=== PATIENT | female | born 1990 | race Caucasian/White ===

== ENCOUNTER 2016-08-29 14:16 | Emergency (ER) | payer OTHER ==
[~2016-08-29 14:16] MED LIST: IBUP80TA PO; PERCOCET PO; VITAPRTA PO
--- NOTE | 2016-08-29 15:55 | EDDOCDS ---
Nurse's Notes [facility] Name: Terri Joy Age: 25 yrs Sex: Female : 1990 Arrival Date: 08/29/2016 Time: 14:16 Bed I10 23 Private MD: NO PRIMARY PHYSICIAN, . Diagnosis: Acute upper respiratory infection, unspecified-viral Presentation: 08/29 14:24 Presenting complaint: Patient states: I have a very bad sore throat, worried it may be [facility] strep, nasal congestion with green snot, heavy head hurts bad, on and off for past month. Adult Sepsis Screening: The patient does not have new or worsening altered mentation. Patient's respiratory rate is less than 22. Systolic blood pressure is greater than 100. Patient has a qSOFA score of 0- Negative Sepsis Screen. Suicide/Homicide risk assessment- the patient denies having any suicidal and/or homicidal ideations and does not present with any other emotional, behavioral or mental health complaints. Status: Patient is not a agency service representative or dependent. Transition of care: patient was not received from another setting of care. 14:24 Acuity: YUAN Level 4 [facility] 14:24 Method Of Arrival: Walkin/Carried/Asstd [facility] Triage Assessment: 14:26 General: Appears in no apparent distress, comfortable, Behavior is appropriate for age, [facility] cooperative. Pain: Location: head, throat, and nose Pain currently is 10 out of 10 on a pain scale. HIV screening NA for this visit. Neurological: Level of Consciousness is awake, alert, Oriented to person, place, time. Respiratory: Airway is patent Respiratory effort is even, unlabored, Respiratory pattern is regular, symmetrical, Reports cough that is. Derm: Skin is pink, warm & dry. 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 control pill daily - PMHx: Asthma; - PSHx: Cesearean Section; - Social history: Smoking status: Patient states was never smoker of tobacco. No barriers to communication noted. - Family history: Not pertinent. - : The pt / caregiver states he / she is not on anticoagulants. Home medication list is obtained from the patient. - Exposure Risk Screening:: None identified. Screenin:17 Screening information is obtained from the patient. Fall risk: No risks identified. mcp Assistance ADL's: requires no assistance with activities of daily living. Abuse/DV Screen: The patient / caregiver reports he/she is: not in a situation that causes fear, pain or injury. Nutritional screening: No deficits noted. Advance Directives: Currently, there is no health care proxy. There is no active DNR order. There is no Power of Employment Clerk. home support is inadequate. Assessment: 15:16 General: Appears in no apparent distress, Behavior is cooperative. Pain: Location: head mcp and throat Pain currently is 7 out of 10 on a pain scale. Neurological: No deficits noted. EENT: Throat is reddened bilaterally Reports nasal congestion nasal discharge that is green. Respiratory: Airway is patent Respiratory effort is even, unlabored. Derm: Skin is pink, warm & dry. Vital Signs: 14:17 BP 126 / 74; Pulse 68; Resp 18; Temp 98.7(O); Pulse Ox 98% ; Weight 81.65 kg; Height 5 elp ft. 8 in. (172.72 cm); 15:52 BP 131 / 77; Pulse 85; Resp 18; Temp 97.6(T); Pulse Ox 94% on R/A; Pain 0/10; mcp 14:17 Body Mass Index 27.37 (81.65 kg, 172.72 cm) [facility] Vitals: 14:17 Log In Time: August 29, 2016 at 14:14. [facility] ED Course: 14:17 Patient visited by Angie Kaufman PCA. elp 14:17 NO PRIMARY PHYSICIAN, . is Private Physician. elp 14:17 Patient moved to Waiting elp 14:18 Patient visited by Angie Kaufman PCA. elp 14:23 Patient visited by Angie Kaufman PCA. elp 14:23 Patient moved to Pre RCE elp 14:25 Triage Initiated cj 14:37 [facility] le 14:37 Patient moved to I10 / 23 hs1 14:41 Patient visited by Ce Kuhn FNP. le 14:41 Patient visited by Ce Kuhn FNP. le 15:17 The patient / caregiver is instructed regarding the plan of care and ED course. Patient mcp has correct armband on for positive identification. Bed in low position. Call light in reach. Adult w/ patient. 15:18 Patient visited by Livier Tapia RN. [facility] 15:18 No IV's were initiated during this patient's visit. No procedures done that require mcp assistance. 15:18 GATS (NEGATIVE STREP SCREEN) Sent. [facility] 15:23 [facility] Payment Agreement was scanned into [employer] and attached to record. 15:38 [facility] is Referral Physician. le Order Results: There are currently no results for this order. Outcome: 15:38 Discharge ordered by Provider. le 15:53 Discharge Assessment: patient administered narcotics - no. The following High Risk [facility] Discharge criteria are identified: None. Discharged to home ambulatory, with family. Condition: stable. Discharge instructions given to patient, Instructed on discharge instructions, follow up and referral plans. medication usage, Demonstrated understanding of instructions, medications, Pt was receptive of discharge instructions/ teaching. Prescriptions given X 1, Work note provided to patient. No special radiology studies were completed. Property sent home with patient. 15:54 Patient left the ED. [facility] Signatures: Livier Tapia, RN RN Jasmyn Rizvi, Reg Reg lg Ce Kuhn, TRANSPORTATION DISPATCHER TRANSPORTATION DISPATCHER Jenniffer Veliz RN RN hs1 Harper BondsRN RN [facility] Angie Kaufman, GLENN TOOL BUILDER elp Corrections: (The following items were deleted from the chart) 14:23 14:17 81.65 kg; Height 5 ft. 8 in.; BMI: 27.3; elp elp MTDD
--- NOTE | 2016-08-29 15:55 | EDDOCDS ---
Physician Documentation [facility] Name: Terri Joy Age: 25 yrs Sex: Female : 1990 Arrival Date: 08/29/2016 Time: 14:16 Bed I10 / 23 Private MD: NO PRIMARY PHYSICIAN, . Disposition: 08/29 15:40 Critical Care: Critical care not applicable. le Disposition: 08/29/16 15:38 Discharged to Home/Self Care. Impression: Acute upper respiratory infection, unspecified - viral. - Condition is Stable. - Discharge Instructions: Upper Respiratory Infection, Adult, Viral Infections. - Prescriptions for Fluticasone 50 mcg/actuation Nasal [place], Suspension - inhale 2 spray by INTRANASAL route once daily; 1 bottle. - Medication Reconciliation, Work Release Form - 2 day, Local Pharmacy Hours form. - Follow up: [facility]; When: Call to arrange an appointment; Reason: To establish care. - Problem is an ongoing problem. - Symptoms are unchanged. - Notes: Keep hydrated Continue to use OTC cold meds for symptom control Return to the ED for worsening symptoms Historical: - Allergies: no known allergies; - Home Meds: 1. control pill daily - PMHx: Asthma; - PSHx: Cesearean Section; - Social history: Smoking status: Patient states was never smoker of tobacco. No barriers to communication noted. - Family history: Not pertinent. - : The pt / caregiver states he / she is not on anticoagulants. Home medication list is obtained from the patient. - Exposure Risk Screening:: None identified. 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 8 in. (172.72 cm); 15:52 BP 131 / 77; Pulse 85; Resp 18; Temp 97.6(T); Pulse Ox 94% on R/A; Pain 0/10; mcp 14:17 Body Mass Index 27.37 (81.65 kg, 172.72 cm) elp MDM: 14:54 Strep Screen, Nursing ordered. le 15:02 Financial registration complete. lg 15:17 GATS (NEGATIVE STREP SCREEN) Ordered. EDMS 15:23 [facility] Payment Agreement was scanned into MED[employer] and attached to record. lg Signatures: Dispatcher [employer] EDMS Livier Tapia, RN RN Jasmyn Rizvi, Reg Reg lg Ce Kuhn, STREET SUPERINTENDENT STREET SUPERINTENDENT Harper Doe RN RN [facility] The chart was reviewed and I authenticate all verbal orders and agree with the evaluation and treatment provided.Attachments: 15:23 [facility] Payment Agreement lg MTDD
--- NOTE | 2016-08-31 16:55 | EDDOCDS ---
Nurse's Notes [facility] Name: Terri Joy Age: 25 yrs Sex: Female : 1990 Arrival Date: 08/29/2016 Time: 14:16 Bed I10 23 Private MD: NO PRIMARY PHYSICIAN, . Diagnosis: Acute upper respiratory infection, unspecified-viral Presentation: 08/29 14:24 Presenting complaint: Patient states: I have a very bad sore throat, worried it may be [facility] strep, nasal congestion with green snot, heavy head hurts bad, on and off for past month. Adult Sepsis Screening: The patient does not have new or worsening altered mentation. Patient's respiratory rate is less than 22. Systolic blood pressure is greater than 100. Patient has a qSOFA score of 0- Negative Sepsis Screen. Suicide/Homicide risk assessment- the patient denies having any suicidal and/or homicidal ideations and does not present with any other emotional, behavioral or mental health complaints. Status: Patient is not a service mechanic or dependent. Transition of care: patient was not received from another setting of care. 14:24 Acuity: YUAN Level 4 [facility] 14:24 Method Of Arrival: Walkin/Carried/Asstd [facility] Triage Assessment: 14:26 General: Appears in no apparent distress, comfortable, Behavior is appropriate for age, [facility] cooperative. Pain: Location: head, throat, and nose Pain currently is 10 out of 10 on a pain scale. HIV screening NA for this visit. Neurological: Level of Consciousness is awake, alert, Oriented to person, place, time. Respiratory: Airway is patent Respiratory effort is even, unlabored, Respiratory pattern is regular, symmetrical, Reports cough that is. Derm: Skin is pink, warm & dry. 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 control pill daily - PMHx: Asthma; - PSHx: Cesearean Section; - Social history: Smoking status: Patient states was never smoker of tobacco. No barriers to communication noted. - Family history: Not pertinent. - : The pt / caregiver states he / she is not on anticoagulants. Home medication list is obtained from the patient. - Exposure Risk Screening:: None identified. Screenin:17 Screening information is obtained from the patient. Fall risk: No risks identified. mcp Assistance ADL's: requires no assistance with activities of daily living. Abuse/DV Screen: The patient / caregiver reports he/she is: not in a situation that causes fear, pain or injury. Nutritional screening: No deficits noted. Advance Directives: Currently, there is no health care proxy. There is no active DNR order. There is no Power of Technology Program Manager. home support is inadequate. Assessment: 15:16 General: Appears in no apparent distress, Behavior is cooperative. Pain: Location: head mcp and throat Pain currently is 7 out of 10 on a pain scale. Neurological: No deficits noted. EENT: Throat is reddened bilaterally Reports nasal congestion nasal discharge that is green. Respiratory: Airway is patent Respiratory effort is even, unlabored. Derm: Skin is pink, warm & dry. Vital Signs: 14:17 BP 126 / 74; Pulse 68; Resp 18; Temp 98.7(O); Pulse Ox 98% ; Weight 81.65 kg; Height 5 elp ft. 8 in. (172.72 cm); 15:52 BP 131 / 77; Pulse 85; Resp 18; Temp 97.6(T); Pulse Ox 94% on R/A; Pain 0/10; mcp 14:17 Body Mass Index 27.37 (81.65 kg, 172.72 cm) [facility] Vitals: 14:17 Log In Time: August 29, 2016 at 14:14. [facility] ED Course: 14:17 Patient visited by Angie Kaufman PCA. elp 14:17 NO PRIMARY PHYSICIAN, . is Private Physician. elp 14:17 Patient moved to Waiting elp 14:18 Patient visited by Angie Kaufman PCA. elp 14:23 Patient visited by Angie Kaufman PCA. elp 14:23 Patient moved to Pre RCE elp 14:25 Triage Initiated cj 14:37 [facility] le 14:37 Patient moved to I10 / 23 hs1 14:41 Patient visited by Ce Kuhn FNP. le 14:41 Patient visited by Ce Kuhn FNP. le 15:17 The patient / caregiver is instructed regarding the plan of care and ED course. Patient mcp has correct armband on for positive identification. Bed in low position. Call light in reach. Adult w/ patient. 15:18 Patient visited by Livier Tapia RN. [facility] 15:18 No IV's were initiated during this patient's visit. No procedures done that require mcp assistance. 15:18 GATS (NEGATIVE STREP SCREEN) Sent. [facility] 15:23 [facility] Payment Agreement was scanned into [employer] and attached to record. 15:38 [facility] is Referral Physician. le 08/30 12:19 T-Sheet-- Draft Copy was scanned into Balanced and attached to record. Order Results: Lab Order: GATS (NEGATIVE STREP SCREEN); SPEC'M 08/29/16 15:05 Test: GATS CULTURE (NEG STREP SCR); Value: GATS RESULT NEGATIVE FOR STREP PYOGENES (GROUP A); Status: F Test: GATS CULTURE (NEG STREP SCR); Value: <EXTERNAL COMMENT eCWMed> FULL REPORT IN LAB NOTES (eCW and Medent).; Status: F Outcome: 08/29 15:38 Discharge ordered by Provider. 15:53 Discharge Assessment: patient administered narcotics - no. The following High Risk [facility] Discharge criteria are identified: None. Discharged to home ambulatory, with family. Condition: stable. Discharge instructions given to patient, Instructed on discharge instructions, follow up and referral plans. medication usage, Demonstrated understanding of instructions, medications, Pt was receptive of discharge instructions/ teaching. Prescriptions given X 1, Work note provided to patient. No special radiology studies were completed. Property sent home with patient. 15:54 Patient left the ED. [facility] Signatures: Livier Taipa RN OUMOU [facility] Shayna Langston, Reg Reg gb Jasmyn Driver, Reg Reg lg Ce Kuhn, ELECTRONIC CONTROLS REPAIRER SUPERVISOR ELECTRONIC CONTROLS REPAIRER SUPERVISOR Jenniffer Veliz RN RN hs1 Harper Bonds RN RN [facility] Angie Kaufman, GLENN RETAIL ASSISTANT elp Corrections: (The following items were deleted from the chart) 14:23 14:17 81.65 kg; Height 5 ft. 8 in.; BMI: 27.3; elp elp Chart Complete MTDD
--- NOTE | 2016-08-31 16:55 | EDDOCDS ---
Physician Documentation [facility] Name: Terri Joy Age: 25 yrs Sex: Female : 1990 Arrival Date: 08/29/2016 Time: 14:16 Bed I10 / 23 Private MD: NO PRIMARY PHYSICIAN, . Disposition: 08/29 15:40 Critical Care: Critical care not applicable. le Disposition: 08/29/16 15:38 Discharged to Home/Self Care. Impression: Acute upper respiratory infection, unspecified - viral. - Condition is Stable. - Discharge Instructions: Upper Respiratory Infection, Adult, Viral Infections. - Prescriptions for Fluticasone 50 mcg/actuation Nasal [place], Suspension - inhale 2 spray by INTRANASAL route once daily; 1 bottle. - Medication Reconciliation, Work Release Form - 2 day, Local Pharmacy Hours form. - Follow up: [facility]; When: Call to arrange an appointment; Reason: To establish care. - Problem is an ongoing problem. - Symptoms are unchanged. - Notes: Keep hydrated Continue to use OTC cold meds for symptom control Return to the ED for worsening symptoms Historical: - Allergies: no known allergies; - Home Meds: 1. control pill daily - PMHx: Asthma; - PSHx: Cesearean Section; - Social history: Smoking status: Patient states was never smoker of tobacco. No barriers to communication noted. - Family history: Not pertinent. - : The pt / caregiver states he / she is not on anticoagulants. Home medication list is obtained from the patient. - Exposure Risk Screening:: None identified. 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 8 in. (172.72 cm); 15:52 BP 131 / 77; Pulse 85; Resp 18; Temp 97.6(T); Pulse Ox 94% on R/A; Pain 0/10; mcp 14:17 Body Mass Index 27.37 (81.65 kg, 172.72 cm) elp MDM: 14:54 Strep Screen, Nursing ordered. le 15:02 Financial registration complete. lg 15:17 GATS (NEGATIVE STREP SCREEN) Ordered. EDMS 15:23 [facility] [place] Agreement was scanned into [employer] and attached to record. lg 08/30 12:19 T-Sheet-- Draft Copy was scanned into [employer] and attached to record. gb Signatures: Dispatcher MedHost EDLivier Tavares, RN RN mcp Shayna Langston, Reg Reg gb Jasmyn Driver, Reg Reg lg Ce Kuhn, MATH TEACHER MATH TEACHERHarper Arnett RN RN [facility] The chart was reviewed and I authenticate all verbal orders and agree with the evaluation and treatment provided.Attachments: 08/29 15:23 [facility] Payment Agreement lg 08/30 12:19 T-Sheet-- Draft Copy gb Chart Complete MTDD
--- NOTE | 2016-08-31 16:55 | EDDOCDS ---
Physician Documentation [facility] Name: Terri Joy Age: 25 yrs Sex: Female : 1990 Arrival Date: 08/29/2016 Time: 14:16 Bed I10 / 23 Private MD: NO PRIMARY PHYSICIAN, . Disposition: 08/29 15:40 Critical Care: Critical care not applicable. le Disposition: 08/29/16 15:38 Discharged to Home/Self Care. Impression: Acute upper respiratory infection, unspecified - viral. - Condition is Stable. - Discharge Instructions: Upper Respiratory Infection, Adult, Viral Infections. - Prescriptions for Fluticasone 50 mcg/actuation Nasal [place], Suspension - inhale 2 spray by INTRANASAL route once daily; 1 bottle. - Medication Reconciliation, Work Release Form - 2 day, Local Pharmacy Hours form. - Follow up: [facility]; When: Call to arrange an appointment; Reason: To establish care. - Problem is an ongoing problem. - Symptoms are unchanged. - Notes: Keep hydrated Continue to use OTC cold meds for symptom control Return to the ED for worsening symptoms Historical: - Allergies: no known allergies; - Home Meds: 1. control pill daily - PMHx: Asthma; - PSHx: Cesearean Section; - Social history: Smoking status: Patient states was never smoker of tobacco. No barriers to communication noted. - Family history: Not pertinent. - : The pt / caregiver states he / she is not on anticoagulants. Home medication list is obtained from the patient. - Exposure Risk Screening:: None identified. 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 8 in. (172.72 cm); 15:52 BP 131 / 77; Pulse 85; Resp 18; Temp 97.6(T); Pulse Ox 94% on R/A; Pain 0/10; mcp 14:17 Body Mass Index 27.37 (81.65 kg, 172.72 cm) elp MDM: 14:54 Strep Screen, Nursing ordered. le 15:02 Financial registration complete. lg 15:17 GATS (NEGATIVE STREP SCREEN) Ordered. EDMS 15:23 [facility] [place] [place] Payment Agreement was scanned into [employer] and attached to record. lg 08/30 12:19 T-Sheet-- Draft Copy was scanned into [employer] C[employer] ToolsHOTHE BEARDED LADY and attached to record. gb Signatures: Dispatcher MedHost EDLivier Tavares, RN RN mcp Shayna Langston, Reg Reg gb Jasmyn Driver, Reg Reg lg Ce Kuhn, VEHICLE BODY BUILDER VEHICLE BODY BUILDERHarper Arnett RN RN [facility] The chart was reviewed and I authenticate all verbal orders and agree with the evaluation and treatment provided.Attachments: 08/29 15:23 [facility] Payment Agreement lg 08/30 12:19 T-Sheet-- Draft Copy gb Chart Complete MTDD
== END 2016-08-29 15:54 | disposition home or self-care (01) ==
LOC: M ED 14:16
DX: J06.9 Acute upper respiratory infection, unspecified (principal); J45.909 Unspecified asthma, uncomplicated; Z79.3 Long term (current) use of hormonal contraceptives

== ENCOUNTER 2016-10-27 21:30 | Emergency (ER) | payer OTHER, SELFPAY ==
[~2016-10-27] VITALS: Ht 172.7 cm; Wt 72.6 kg
[2016-10-27 21:30] VITALS: BP 123/76
[2016-10-27] MEDS ORDERED: NATATAB2 PO (21:44)
[2016-10-27] MEDS ORDERED: KETOROLAC 60 MG/2 ML VIAL (J1885) IM ONE (22:30)
== END 2016-10-27 23:24 | disposition home or self-care (01) ==
LOC: M ED 22:34
DX: R10.2 Pelvic and perineal pain (principal); J45.909 Unspecified asthma, uncomplicated; E66.9 Obesity, unspecified; Z79.3 Long term (current) use of hormonal contraceptives
CPT/HCPCS: 81025; 96372; 99283; J1885

== ENCOUNTER 2016-12-08 22:44 | Emergency (ER) | payer SELFPAY ==
[~2016-12-08] VITALS: Ht 172.7 cm; Wt 72.6 kg
[~2016-12-08 22:44] MED LIST changes: +NATATAB2 PO
[2016-12-09] MEDS ORDERED: ONDANSETRON 4 MG ORAL DISINTEGRATING TAB (S0181) PO ONE (01:15)
[2016-12-09] MEDS ORDERED: PHENAZOPYRIDINE 100 MG TAB PO ONE (01:15)
[2016-12-09] MEDS ORDERED: CIPROFLOXACIN 500 MG TAB PO ONE (01:15)
[2016-12-09] MEDS ORDERED: CIPR500T89 PO (01:15)
[2016-12-09] MEDS ORDERED: PYRI200T5 PO (01:15)
[2016-12-09] MEDS ORDERED: ZOFR4TAB3 PO (01:15)
[2016-12-09 01:34] VITALS: BP 122/87
== END 2016-12-09 01:36 | disposition home or self-care (01) ==
LOC: M ED 12-09 00:02
DX: N30.01 Acute cystitis with hematuria (principal); Z87.440 Personal history of urinary (tract) infections; Z79.899 Other long term (current) drug therapy

== ENCOUNTER 2017-03-09 10:30 | Emergency (ER) | payer SELFPAY ==
[~2017-03-09] VITALS: Ht 172.7 cm; Wt 81.8 kg
[~2017-03-09 10:30] MED LIST changes: +CIPR-249 PO; +PYRI1TAB5 PO; +ZOFR4TAB3 PO
[2017-03-09 10:31] VITALS: BP_DIAS 77
[2017-03-09] MEDS ORDERED: CLIN150C14 PO (10:40)
[2017-03-09 11:09] LABS: MICROSCOPIC INDICATED? MAN YES (NO)
[2017-03-09 11:14] LABS: MICROSCOPIC EXAM PERFORMED; RBC, URINE TNTC /hpf (0-3); SQUAMOUS EPITHELIAL CELL URINE LARGE AMOUNT /hpf (SMALL AMT); WBC, URINE TNTC /hpf (0-3)
[2017-03-09 11:15] LABS: BACTERIA, URINE MOD AMOUNT; HYALINE CAST, URINE NONE SEEN /lpf (0-1)
[2017-03-09] MEDS ORDERED: ACETAMINOPHEN 325 MG TAB PO ONE (11:15)
[2017-03-09] MEDS ORDERED: CEPHALEXIN 500 MG CAP PO ONE (11:15)
[2017-03-09] MEDS ORDERED: PHENAZOPYRIDINE 100 MG TAB PO ONE (11:15)
[2017-03-09] MEDS ORDERED: PYRI1TAB5 PO (11:40)
[2017-03-09] MEDS ORDERED: KEFL500C17 PO (11:40)
[2017-03-09 11:43] VITALS: BP_SYST 116
== END 2017-03-09 11:45 | disposition home or self-care (01) ==
LOC: M ED 10:30
DX: N30.01 Acute cystitis with hematuria (principal); Z79.2 Long term (current) use of antibiotics

== ENCOUNTER 2017-05-24 08:33 | Emergency (ER) | payer SELFPAY ==
[~2017-05-24] VITALS: Ht 172.7 cm; Wt 81.8 kg
[~2017-05-24 08:33] MED LIST changes: +CLIN150C14 PO; +KEFL500C17 PO
[2017-05-24 08:34] VITALS: BP 148/80
[2017-05-24] MEDS ORDERED: ONDANSETRON 4 MG ORAL DISINTEGRATING TAB (S0181) SL STA (09:29)
[2017-05-24] MEDS ORDERED: ZOFR4TAB3 PO (09:35)
== END 2017-05-24 09:45 | disposition home or self-care (01) ==
LOC: M ED 08:33
DX: B34.9 Viral infection, unspecified (principal)

== ENCOUNTER → 2018-01-29 | Outpatient (REF) | payer SELFPAY | LOC: M LAB REF 18:15 | DX: Z12.4 Encounter for screening for malignant neoplasm of cervix (principal) | CPT/HCPCS: G0123 ==

== ENCOUNTER 2018-03-14 20:25 | Emergency (ER) | payer OTHER, SELFPAY | END 2018-03-15 01:02 | disposition home or self-care (01) | LOC: M ED 20:25 | DX: R10.10 Upper abdominal pain, unspecified (principal); R11.0 Nausea; R51 Headache; R53.83 Other fatigue; J45.909 Unspecified asthma, uncomplicated; Z79.3 Long term (current) use of hormonal contraceptives | CPT/HCPCS: 99283 ==

== ENCOUNTER 2018-03-15 11:22 | Emergency (ER) | payer OTHER ==
[2018-03-15] MEDS: GI COCKTAIL 50ML BTL(HYOSCYAMINE/MAALOX/LIDOCAINE VISCOUS)(1:3:1) PO (12:19)
[2018-03-15] MEDS: ONDANSETRON 4 MG ORAL DISINTEGRATING TAB (Q0162 PER 1MG) PO (12:19)
[2018-03-15 12:23] LABS: KETONE, URINE AUTO RFX TRACE mg/dL (NEGATIVE); MUCUS, URINE RFX SMALL (NEGATIVE); NITRITE, URINE AUTO RFX NEGATIVE (NEGATIVE); RBC, URINE AUTO RFX 3 /HPF (0-3); SPECIFIC GRAVITY UR AUTO RFX 1.023 (1.002-1.035); SQUAM EPITHELIAL CELL UR AURFX 38 /HPF (0-6); WBC, URINE AUTO RFX 4 /HPF (0-3)
[2018-03-15 12:34] LABS: LEUKOCYTE ESTERASE UR AUTO RFX TRACE (NEGATIVE)
== END 2018-03-15 12:51 | disposition home or self-care (01) ==
LOC: M ED 11:22
DX: K21.9 Gastro-esophageal reflux disease without esophagitis (principal); R11.0 Nausea; J45.909 Unspecified asthma, uncomplicated; R51 Headache; Z79.3 Long term (current) use of hormonal contraceptives
CPT/HCPCS: Q0162

== ENCOUNTER 2018-03-24 22:32 | Emergency (ER) | payer OTHER ==
[2018-03-25] MEDS: KETOROLAC 60 MG/2 ML VIAL (J1885) IM (00:35)
[2018-03-25] MEDS: diazePAM 10 MG TAB PO (00:35)
== END 2018-03-25 00:52 | disposition home or self-care (01) ==
LOC: M ED 22:32
DX: S39.012A Strain of muscle, fascia and tendon of lower back, initial encounter (principal); X58.XXXA Exposure to other specified factors, initial encounter; Y92.59 Other trade areas as the place of occurrence of the external cause; Y99.0 Civilian activity done for income or pay; K04.7 Periapical abscess without sinus; J45.909 Unspecified asthma, uncomplicated; Z79.3 Long term (current) use of hormonal contraceptives
CPT/HCPCS: J1885

== ENCOUNTER 2018-04-04 19:28 | Emergency (ER) | payer OTHER ==
[2018-04-04] MEDS: NORCO, ANEXSIA 5/325MG TABLET (HYDROcodone/ACETAMINOPHEN) PO (22:30)
[2018-04-04] MEDS: KETOROLAC 30 MG/ML VIAL (J1885) IV (22:30)
[2018-04-04] MEDS: ONDANSETRON 4MG/2ML VIAL (J2405) IV (22:30)
[2018-04-04 23:27] LABS: BASO % 0.3 % (0.0-1.0); EOS # 0.3 10^3/uL (0.0-0.50); EOS % 3.1 % (0.0-3.0); HEMATOCRIT 40.4 % (36.0-47.0); HEMOGLOBIN 13.7 g/dl (12.0-15.5); IMMATURE GRANULOCYTE % 0.3 % (0-3.0); LYMPH # 3.5 10^3/uL (1.5-6.5); LYMPH % 33.7 % (24.0-44.0); MEAN CORPUSCULAR HEMOGLOBIN 29.9 pg (27.0-33.0); MEAN CORPUSCULAR HGB CONC 33.9 g/dl (32.0-36.5); MEAN CORPUSCULAR VOLUME 88.2 fl (80.0-96.0); MONO # 0.7 10^3/uL (0.0-0.8); MONO % 6.3 % (0.0-5.0); NEUTROPHILS # 5.9 10^3/uL (1.8-7.7); NEUTROPHILS % 56.3 % (36.0-66.0); PLATELET COUNT, AUTOMATED 276 10^3/uL (150-450); RED BLOOD COUNT 4.58 10^6/uL (4.00-5.40); RED CELL DISTRIBUTION WIDTH 12.3 % (11.5-14.5); WHITE BLOOD COUNT 10.5 10^3/uL (4.0-10.0)
[2018-04-04 23:30] LABS: KETONE, URINE AUTO RFX NEGATIVE (NEGATIVE); MUCUS, URINE RFX SMALL (NEGATIVE); NITRITE, URINE AUTO RFX NEGATIVE (NEGATIVE); RBC, URINE AUTO RFX TNTC /HPF (0-3); SPECIFIC GRAVITY UR AUTO RFX 1.006 (1.002-1.035); SQUAM EPITHELIAL CELL UR AURFX 1 /HPF (0-6)
[2018-04-04 23:32] LABS: LEUKOCYTE ESTERASE UR AUTO RFX 3+ (NEGATIVE); WBC, URINE AUTO RFX TNTC /HPF (0-3)
[2018-04-04 23:51] LABS: CONTROL LINE UCG INT CTR LINE PRESENT; URINE PREG TEST NEGATIVE (NEGATIVE)
[2018-04-04 23:55] LABS: ANION GAP 5 MEQ/L (8-16); BLOOD UREA NITROGEN 13 MG/DL (7-18); C REACTIVE PROTEIN QUANTITATIV < 0.30 MG/DL (0.00-0.30); CALCIUM LEVEL 9.2 MG/DL (8.5-10.1); CARBON DIOXIDE LEVEL 30 MEQ/L (21-32); CHLORIDE LEVEL 104 MEQ/L (98-107); CREATININE FOR GFR 0.73 MG/DL (0.55-1.30); GLOMERULAR FILTRATION RATE > 60.0 (>60); GLUCOSE, FASTING 87 MG/DL (70-100); POTASSIUM SERUM 3.8 MEQ/L (3.5-5.1); SODIUM LEVEL 139 MEQ/L (136-145)
[2018-04-05] MEDS: cefTRIAXone SOD 1 GM in D5W MINI-BAG PLUS 50 ML IV (00:51)
== END 2018-04-05 01:38 | disposition home or self-care (01) ==
LOC: M ED 04-05 01:38
DX: N12 Tubulo-interstitial nephritis, not specified as acute or chronic (principal); J45.909 Unspecified asthma, uncomplicated; Z79.899 Other long term (current) drug therapy
CPT/HCPCS: J2405

== ENCOUNTER 2018-09-05 11:21 | Emergency (ER) | payer BC, OTHER ==
[~2018-09-05] VITALS: Ht 172.7 cm; Wt 81.8 kg
[~2018-09-05 11:21] MED LIST changes: +CLEO150C PO; +ESTA0.25; +KETO10TAB PO; +NAPR-50 PO; +NORCOTAB PO; +PROT1TAB2 PO; +ROBA500T PO; +ZOFR4TAB14 PO; -ZOFR4TAB3 PO
[2018-09-05 12:50] LABS: INFLUENZA A AMPLIFICATION POSITIVE (NEGATIVE); INFLUENZA B AMPLIFICATION NEGATIVE (NEGATIVE)
[2018-09-05] MEDS ORDERED: ONDA4TAB6 PO (12:55)
[2018-09-05] MEDS ORDERED: IBUP-1022 PO (12:55)
[2018-09-05] MEDS ORDERED: ACETAMINOPHEN 325 MG TAB PO ONE (13:00)
[2018-09-05 13:01] VITALS: BP 131/70
== END 2018-09-05 13:02 | disposition home or self-care (01) ==
LOC: M ED 11:21
DX: J09.X2 Influenza due to identified novel influenza A virus with other respiratory manifestations (principal); Z79.3 Long term (current) use of hormonal contraceptives

== ENCOUNTER → 2019-01-22 | Outpatient (REF) | payer BC, MEDICAID, SELFPAY ==
[~2019-01-22] MED LIST changes: +HYDR-3715 PO; +IBUP-1022 PO; -NAPR-50 PO; +NAPR-837 PO; -NORCOTAB PO; +ONDA4TAB6 PO
[2019-01-22 18:08] LABS: BASO % 0.3 % (0.0-1.0); EOS # 0.2 10^3/uL (0.0-0.50); EOS % 2.8 % (0.0-3.0); HEMOGLOBIN 14.2 g/dl (12.0-15.5); LYMPH # 2.5 10^3/uL (1.5-6.5); LYMPH % 36.4 % (24.0-44.0); MEAN CORPUSCULAR HEMOGLOBIN 29.5 pg (27.0-33.0); MEAN CORPUSCULAR VOLUME 89.4 fl (80.0-96.0); MONO # 0.5 10^3/uL (0.0-0.8); MONO % 6.8 % (0.0-5.0); NEUTROPHILS # 3.6 10^3/uL (1.8-7.7); NEUTROPHILS % 53.6 % (36.0-66.0); PLATELET COUNT, AUTOMATED 281 10^3/uL (150-450); RED BLOOD COUNT 4.81 10^6/uL (4.00-5.40); WHITE BLOOD COUNT 6.8 10^3/uL (4.0-10.0)
[2019-01-22 18:17] LABS: ALBUMIN 4.2 GM/DL (3.2-5.2); ALT/SGPT 23 U/L (12-78); BILIRUBIN,TOTAL 0.9 MG/DL (0.2-1.0); BLOOD UREA NITROGEN 14 MG/DL (7-18); CALCIUM LEVEL 9.1 MG/DL (8.5-10.1); CARBON DIOXIDE LEVEL 27 MEQ/L (21-32); CHLORIDE LEVEL 105 MEQ/L (98-107); CHOLESTEROL LEVEL 228 MG/DL (<200); CHOLESTEROL RISK RATIO 3.211 (<5); CREATININE FOR GFR 0.84 MG/DL (0.55-1.30); GLOMERULAR FILTRATION RATE > 60.0 (>60); GLUCOSE, FASTING 82 MG/DL (70-100); HDL CHOLESTEROL 71 MG/DL (>40); LDL CHOLESTEROL 141 MG/DL (<100); NON-HDL-C 157 MG/DL; POTASSIUM SERUM 4.2 MEQ/L (3.5-5.1); SODIUM LEVEL 138 MEQ/L (136-145); TOTAL PROTEIN 8.3 GM/DL (6.4-8.2); TRIGLYCERIDES LEVEL 81 MG/DL (<150)
[2019-01-22 18:20] LABS: HEMOGLOBIN A1c 5.8 %
[2019-01-25 00:06] LABS: Lyme Disease IgG/IgM Antibodie <0.91 ISR (0.00-0.90); Lyme Disease IgM Ab Quantitati <0.80 index (0.00-0.79)
== END ==
LOC: M LAB REF 17:14
PROVIDERS: ATTEND Family Medicine
DX: Z13.228 Encounter for screening for other metabolic disorders (principal)

== ENCOUNTER → 2019-02-24 | Outpatient (REF) | payer MEDICAID | LOC: M LAB REF 18:17 | PROVIDERS: ATTEND Family Medicine | DX: N76.0 Acute vaginitis (principal) ==

== ENCOUNTER → 2019-03-27 | Outpatient (CLI) | payer OTHER ==
[~2019-03-27] MED LIST changes: +REGL10TA6 PO
[2019-03-27 15:24] LABS: HEMOGLOBIN A1c 5.5 %
[2019-03-27 15:30] LABS: ALBUMIN 3.6 GM/DL (3.2-5.2); ALT/SGPT 22 U/L (12-78); BILIRUBIN,TOTAL 0.8 MG/DL (0.2-1.0); BLOOD UREA NITROGEN 13 MG/DL (7-18); CALCIUM LEVEL 8.9 MG/DL (8.5-10.1); CARBON DIOXIDE LEVEL 29 MEQ/L (21-32); CHLORIDE LEVEL 108 MEQ/L (98-107); CHOLESTEROL LEVEL 193 MG/DL (<200); CHOLESTEROL RISK RATIO 3.271 (<5); CREATININE FOR GFR 0.66 MG/DL (0.55-1.30); GLOMERULAR FILTRATION RATE > 60.0 (>60); GLUCOSE, FASTING 83 MG/DL (70-100); HDL CHOLESTEROL 59 MG/DL (>40); LDL CHOLESTEROL 121 MG/DL (<100); NON-HDL-C 134 MG/DL; POTASSIUM SERUM 3.9 MEQ/L (3.5-5.1); SODIUM LEVEL 140 MEQ/L (136-145); TRIGLYCERIDES LEVEL 63 MG/DL (<150)
[2019-03-27 15:43] LABS: HEPATITIS B SURFACE ANTIGEN NEGATIVE (NEGATIVE)
[2019-03-27 16:11] LABS: HEPATITIS C VIRUS ABY INDEX < 0.0 INDEX (<0.8)
[2019-03-27 16:12] LABS: HIV 1&2 SCREEN CENTAUR NEGATIVE (NEGATIVE)
[2019-03-27 16:21] LABS: CHLAMYDIA DNA AMPLIFICATION NEGATIVE (NEGATIVE); GC DNA AMPLIFICATION NEGATIVE (NEGATIVE)
[2019-03-27 19:29] LABS: HCG, SERUM QUALITATIVE NEGATIVE (NEGATIVE)
[2019-03-28 10:48] LABS: HEPATITIS B CORE ANTIBODY IGM NEGATIVE (NEGATIVE)
[2019-03-28 10:50] LABS: HEPATITIS A ANTIBODY IGM NEGATIVE (NEGATIVE)
[2019-03-29 09:21] LABS: HSV TYPE II IgG SPECIFIC <0.91 index (0.00-0.90)
== END ==
LOC: M LAB 14:09
PROVIDERS: ATTEND Family Medicine
DX: Z11.3 Encounter for screening for infections with a predominantly sexual mode of transmission (principal); E78.5 Hyperlipidemia, unspecified; R73.03 Prediabetes; N91.2 Amenorrhea, unspecified

== ENCOUNTER 2019-05-15 16:07 | Emergency (ER) | payer OTHER ==
[~2019-05-15] VITALS: Ht 172.7 cm; Wt 77.1 kg
[~2019-05-15 16:07] MED LIST changes: -REGL10TA6 PO
[2019-05-15 16:08] VITALS: BP 139/82
[2019-05-15] MEDS ORDERED: METOCLOPRAMIDE 10 MG TAB PO ONE (17:00)
[2019-05-15 17:14] LABS: HEMATOCRIT 41.3 % (36.0-47.0); HEMOGLOBIN 14.3 g/dl (12.0-15.5); MEAN CORPUSCULAR HGB CONC 34.6 g/dl (32.0-36.5); MEAN CORPUSCULAR VOLUME 89.4 fl (80.0-96.0); PLATELET COUNT, AUTOMATED 267 10^3/uL (150-450); RED BLOOD COUNT 4.62 10^6/uL (4.00-5.40); WHITE BLOOD COUNT 11.6 10^3/uL (4.0-10.0)
[2019-05-15 17:42] LABS: ALBUMIN 3.9 GM/DL (3.2-5.2); BILIRUBIN,DIRECT 0.2 MG/DL (0.0-0.2); BILIRUBIN,TOTAL 1.6 MG/DL (0.2-1.0); TOTAL PROTEIN 7.6 GM/DL (6.4-8.2)
[2019-05-15] MEDS ORDERED: REGL10TA6 PO (17:54)
== END 2019-05-15 18:06 | disposition home or self-care (01) ==
LOC: M ED 16:07
DX: O21.0 Mild hyperemesis gravidarum (principal); Z3A.00 Weeks of gestation of pregnancy not specified; J45.909 Unspecified asthma, uncomplicated; R51 Headache

== ENCOUNTER → 2019-06-06 | Outpatient (REF) | payer OTHER ==
[~2019-06-06] MED LIST changes: +REGL10TA6 PO
[2019-06-06 19:16] LABS: CHLAMYDIA DNA AMPLIFICATION NEGATIVE (NEGATIVE); GC DNA AMPLIFICATION NEGATIVE (NEGATIVE)
== END ==
LOC: M LAB REF 16:54
PROVIDERS: ATTEND Advanced Practice Midwife
DX: Z11.3 Encounter for screening for infections with a predominantly sexual mode of transmission (principal)

== ENCOUNTER → 2019-06-12 | Outpatient (CLI) | payer OTHER ==
[2019-06-12 18:30] LABS: BASO % 0.2 % (0.0-1.0); EOS # 0.1 10^3/uL (0.0-0.5); EOS % 0.9 % (0.0-3.0); HEMATOCRIT 39.2 % (36.0-47.0); HEMOGLOBIN 13.1 g/dl (12.0-15.5); LYMPH # 2.6 10^3/uL (1.5-5.0); MEAN CORPUSCULAR HEMOGLOBIN 30.3 pg (27.0-33.0); MEAN CORPUSCULAR HGB CONC 33.4 g/dl (32.0-36.5); MEAN CORPUSCULAR VOLUME 90.5 fl (80.0-96.0); MONO # 0.6 10^3/uL (0.0-0.8); NEUTROPHILS # 7.4 10^3/uL (1.5-8.5); NEUTROPHILS % 68.5 % (36.0-66.0); PLATELET COUNT, AUTOMATED 251 10^3/uL (150-450); RED BLOOD COUNT 4.33 10^6/uL (4.00-5.40); WHITE BLOOD COUNT 10.8 10^3/uL (4.0-10.0)
[2019-06-12 22:38] LABS: CHLAMYDIA DNA AMPLIFICATION NEGATIVE (NEGATIVE); GC DNA AMPLIFICATION NEGATIVE (NEGATIVE)
[2019-06-13 10:38] LABS: HIV 1&2 SCREEN CENTAUR NEGATIVE (NEGATIVE); RUBELLA IgG QUALITATIVE IMMUNE (IMMUNE)
== END ==
LOC: M SMT 14:48
PROVIDERS: ATTEND Specialist
DX: Z34.81 Encounter for supervision of other normal pregnancy, first trimester (principal)

== ENCOUNTER → 2019-08-01 | Outpatient (CLI) | payer OTHER ==
--- NOTE | 2019-08-01 14:41 | REP ---
Obstetric sonography: History: Supervision of for anatomy. Sonographic findings: Scanning through the gravid uterus demonstrates a viable single intrauterine gestation in a cephalic lie. motion is observed and heart rate is recorded at 152 beats per minute. An anterior grade 0 placenta is seen without evidence of previa or abruption. Amniotic fluid is subjectively somewhat low. JASON is decreased as well at 7.2 cm (8.9-20.6 cm). Closed cervical length measured transabdominally is 3.5 cm. No extrauterine abnormalities observed. No anomaly is seen. Nose and lips are seen in the face. Facial profile views are less than optimally seen due to position. In addition, four-chamber heart and outflow tract views are less than optimally achieved due to position. The following additional anatomic structures are identified today and felt to be unremarkable: cranium, choroid plexus, cavum, cerebellum and posterior fossa, diaphragm, left-sided stomach, abdominal wall cord insertion, three-vessel umbilical cord, kidneys and bladder, spine, upper and lower extremities. Biometry chart: BPD 4.1 cm = 18 weeks 3 days Head circumference 15.3 cm = 18 weeks 3 days Abdominal circumference 11.6 cm = 17 weeks 2 days Femur length 2.8 cm = 18 weeks 5 days Humeral length 2.6 cm = 18 weeks 0 days HC/AC ratio 1.32 (1.07-1.26). Cephalic index normal 0.74. Estimated weight 221 grams/0 pounds 7 ounces/23rd percentile for 18 weeks 5 days. JASON 7.2 cm (8.9-20.6 cm). Impression: Viable single intrauterine gestation at 18 weeks 1 day by today's composite sonographic criteria. RENA by today's sonography January 01, 2020. anatomic survey is less than complete. JASON is somewhat low at 7.2 cm. Electronically Signed by Ha Resendez MD 08/01/2019 03:57 P
== END ==
LOC: M RAD 12:18
PROVIDERS: ATTEND Advanced Practice Midwife
DX: Z34.92 Encounter for supervision of normal pregnancy, unspecified, second trimester (principal); Z3A.18 18 weeks gestation of pregnancy

== ENCOUNTER 2019-08-03 08:24 | Emergency (ER) | payer OTHER ==
[~2019-08-03] VITALS: Ht 172.7 cm; Wt 80.0 kg
[2019-08-03 09:03] LABS: BASO % 0.3 % (0.0-1.0); EOS # 0.2 10^3/uL (0.0-0.5); EOS % 1.9 % (0.0-3.0); HEMOGLOBIN 12.2 g/dl (12.0-15.5); LYMPH # 2.3 10^3/uL (1.5-5.0); LYMPH % 22.8 % (24.0-44.0); MEAN CORPUSCULAR HEMOGLOBIN 30.1 pg (27.0-33.0); MEAN CORPUSCULAR VOLUME 91.4 fl (80.0-96.0); MONO # 0.6 10^3/uL (0.0-0.8); MONO % 6.1 % (0.0-5.0); NEUTROPHILS % 68.6 % (36.0-66.0); PLATELET COUNT, AUTOMATED 215 10^3/uL (150-450); RED BLOOD COUNT 4.05 10^6/uL (4.00-5.40); WHITE BLOOD COUNT 10.1 10^3/uL (4.0-10.0)
[2019-08-03 09:42] LABS: BLOOD UREA NITROGEN 9 MG/DL (7-18); CALCIUM LEVEL 8.1 MG/DL (8.5-10.1); CARBON DIOXIDE LEVEL 24 MEQ/L (21-32); CHLORIDE LEVEL 109 MEQ/L (98-107); CREATININE FOR GFR 0.56 MG/DL (0.55-1.30); GLOMERULAR FILTRATION RATE > 60.0 (>60); GLUCOSE, FASTING 81 MG/DL (70-100); HCG, SERUM QUANTITATIVE 7766 MIU/ML; SODIUM LEVEL 140 MEQ/L (136-145)
[2019-08-03] MEDS ORDERED: NS 1,000 ML IV ONE (10:30)
--- NOTE | 2019-08-03 11:53 | REP ---
OBSTETRIC SONOGRAPHY: Limited exam. HISTORY: Left pelvic pain. Comparison study August 01, 2019. FINDINGS: Limited scanning demonstrates a living intrauterine gestation in a cephalic lie. heart rate is recorder 153 beats per minute. An anterior placenta is seen without evidence of previa. Amniotic fluid is subjectively normal. Closed cervical length is measured transabdominally at 3.3 cm. There is a 1.6 cm cystic area in the maternal left ovary consistent with corpus luteum. No other extrauterine abnormalities observed. IMPRESSION: Limited obstetric sonography shows normal amniotic fluid level subjectively. No complication is identified. 1.6 cm corpus luteum cyst on the left ovary. Electronically Signed by Ha Resendez MD 08/03/2019 12:17 P
[2019-08-03 12:27] LABS: CHLAMYDIA DNA AMPLIFICATION NEGATIVE (NEGATIVE); GC DNA AMPLIFICATION NEGATIVE (NEGATIVE)
[2019-08-03] MEDS ORDERED: KEFL500C17 PO (12:49)
[2019-08-03 13:03] VITALS: BP 114/68
== END 2019-08-03 13:07 | disposition home or self-care (01) ==
LOC: M ED 08:24
DX: O34.81 Maternal care for other abnormalities of pelvic organs, first trimester (principal); N83.201 Unspecified ovarian cyst, right side; O23.41 Unspecified infection of urinary tract in pregnancy, first trimester; Z3A.19 19 weeks gestation of pregnancy; O99.511 Diseases of the respiratory system complicating pregnancy, first trimester; J45.909 Unspecified asthma, uncomplicated; O99.341 Other mental disorders complicating pregnancy, first trimester; F41.9 Anxiety disorder, unspecified

== ENCOUNTER → 2019-08-22 | Outpatient (CLI) | payer OTHER ==
--- NOTE | 2019-08-22 18:26 | REP ---
Obstetric ultrasound for anatomy: There is a single intrauterine gestation in a vertex presentation. There is movement and cardiac activity. The heart rate is 144 beats per minute. The placenta is anterior without previa or abruptio. The placenta is grade 1. The amniotic fluid volume subjectively is normal. The cervix measures 4.0 cm length. Gestational age by today's ultrasound is 21 weeks 1 day/RENA 01/01/2020. Gestational age by at the first ultrasound is 21 weeks 1 day. The gestational age by LMP is 21 weeks 5 days. The weight is 410 grams/0 pounds, 14 ounces. This is the 32nd percentile for 12 1 week 5 days. The following anatomic structures are identified and are unremarkable: Intracranial lateral ventricles, choroid plexus, cavum septum pellucidum, cerebellum, cisterna magna, upper lip, lungs, four-chamber heart, cardiac right and left ventricular outflow tracts, diaphragm, stomach, cord insertion, three-vessel cord, kidneys, bladder and upper lower extremities. Suboptimally demonstrated because of position are the facial profile and spine. A followup study dedicated to these structures might be considered. Electronically Signed by Ryan Hawley MD 08/22/2019 06:17 P
== END ==
LOC: M RAD 15:21
PROVIDERS: ATTEND Advanced Practice Midwife
DX: Z36.2 Encounter for other antenatal screening follow-up (principal); Z3A.21 21 weeks gestation of pregnancy

== ENCOUNTER → 2019-09-30 | Outpatient (CLI) | payer OTHER ==
--- NOTE | 2019-09-30 16:40 | REP ---
OB ULTRASOUND: Real-time sonographic evaluation of the gravid uterus performed. There is a single living intrauterine gestation. The estimated gestational age is 27 weeks 2 days with EDC 12/28/2019. Today's measurements indicate appropriate growth. BPD 63 mm = 25 weeks 5 days, 17th percentile HC 240 mm = 26 weeks 1 days, 24th percentile AC 210 mm = 25 weeks 4 days, 15th percentile FL 49 mm = 26 weeks 3 days, 33rd percentile HC/AC ratio 1.14, within normal range. Estimated weight 873 grams, 11th percentile. Cervix is closed and measures 4.3 cm in length. heart rate 140 beats per minute. SEEN/GROSSLY UNREMARKABLE Lateral ventricles yes Posterior fossa yes Upper lip yes Four-chamber heart yes LVOT yes RVOT no Stomach yes Cord insertion yes Three vessel cord yes Kidneys yes Bladder yes Spine yes position: Breech. Placenta: Anterior and grade 1 with no previa or abruption. Amniotic fluid: Within normal limits. Electronically Signed by Ryan Lindsey MD 09/30/2019 08:01 P
== END ==
LOC: M RAD 15:00
PROVIDERS: ATTEND Nurse Practitioner Women's Health
DX: Z36.2 Encounter for other antenatal screening follow-up (principal); O34.211 Maternal care for low transverse scar from previous cesarean delivery; Z3A.00 Weeks of gestation of pregnancy not specified

== ENCOUNTER → 2019-10-20 | Outpatient (CLI) | payer OTHER ==
--- NOTE | 2019-10-20 16:22 | REP ---
Clinical: Growth evaluation Comparison: 09/30/2019 . Findings: Examination demonstrates a single live intrauterine in cephalic presentation. motion is identified by technologist. Placenta is noted anterior and grade I without evidence for placenta previa or abruption. Amniotic fluid volume is normal. Cervix measures 3.7 cm in length and appears closed. No evidence for nuchal cord. Gestational age by LMP 30 weeks 1 day with RENA 12/28/2019 . Gestational age by current measurements 29 weeks 1 day with RENA 01/04/2020 . FHR equals 146 beats per minute. Estimated weight 1322 grams ( 20th percentile). Amniotic fluid index: 11.1 cm (9.0 - 23.5). Impression: Single live intrauterine in cephalic presentation demonstrating appropriate estimated weight.
== END ==
LOC: M WHC 15:19
PROVIDERS: ATTEND Nurse Practitioner Women's Health
DX: O36.5930 Maternal care for other known or suspected poor fetal growth, third trimester, not applicable or unspecified (principal)

== ENCOUNTER → 2019-11-25 | Outpatient (REF) | payer OTHER ==
[2019-11-25 11:25] LABS: HEMATOCRIT 32.5 % (36.0-47.0); HEMOGLOBIN 10.8 g/dl (12.0-15.5); MEAN CORPUSCULAR HEMOGLOBIN 30.1 pg (27.0-33.0); MEAN CORPUSCULAR HGB CONC 33.2 g/dl (32.0-36.5); MEAN CORPUSCULAR VOLUME 90.5 fl (80.0-96.0); PLATELET COUNT, AUTOMATED 235 10^3/uL (150-450); RED BLOOD COUNT 3.59 10^6/uL (4.00-5.40); WHITE BLOOD COUNT 11.2 10^3/uL (4.0-10.0)
== END ==
LOC: M PLALAB 08:01
PROVIDERS: ATTEND Nurse Practitioner Women's Health
DX: O34.211 Maternal care for low transverse scar from previous cesarean delivery (principal)

== ENCOUNTER → 2019-11-26 | Outpatient (CLI) | payer OTHER ==
--- NOTE | 2019-11-27 04:26 | REP ---
Clinical: Growth evaluation. Comparison: 10/20/2019 . Findings: Examination demonstrates a single live intrauterine in cephalic presentation. motion is identified by technologist. Placenta is noted anterior and grade I I without evidence for placenta previa or abruption. Amniotic fluid volume is normal. Cervix measures 3.5 cm in length and appears closed. No evidence for nuchal cord. Gestational age by LMP 35 weeks 3 days with RENA 12/28/2019 . Gestational age by current measurements 35 weeks 0 days with RENA 12/31/2019 . FHR equals 132 beats per minute. Amniotic fluid index: 17.1 cm. Estimated weight by current biometrical measurements 2513 grams ( 38th percentile). Impression: Single live advanced gestation in cephalic presentation demonstrating appropriate interval growth. No gross abnormalities are identified.
== END ==
LOC: M WHC 14:30
PROVIDERS: ATTEND Advanced Practice Midwife
DX: O26.843 Uterine size-date discrepancy, third trimester (principal); Z3A.35 35 weeks gestation of pregnancy

== ENCOUNTER → 2019-12-01 | Outpatient (CLI) | payer OTHER | LOC: M LAB 07:10 | PROVIDERS: ATTEND Nurse Practitioner Women's Health | DX: O99.810 Abnormal glucose complicating pregnancy (principal); Z3A.35 35 weeks gestation of pregnancy ==

== ENCOUNTER → 2019-12-02 | Outpatient (REF) | payer OTHER ==
[~2019-12-02] MED LIST changes: +IRON65TA2 PO; +PREN29TA4 PO; +ZOLO25TA PO
== END ==
LOC: M SFHCWAGY 17:11
PROVIDERS: ATTEND Specialist
DX: Z36.89 Encounter for other specified antenatal screening (principal); Z3A.00 Weeks of gestation of pregnancy not specified

== ENCOUNTER → 2019-12-20 | Outpatient (CLI) | payer OTHER | LOC: M LABSMTC 08:16 | PROVIDERS: ATTEND Anesthesiology | DX: Z01.818 Encounter for other preprocedural examination (principal); Z11.59 Encounter for screening for other viral diseases ==

== ENCOUNTER 2019-12-23 06:07 | Inpatient (IN) | payer OTHER ==
[~2019-12-23] VITALS: Ht 172.7 cm; Wt 102.0 kg
[2019-12-23] VITALS (10 sets, daily range): BP systolic 107–131; BP diastolic 56–71
[2019-12-23] MEDS ORDERED: LR 1,000 ML IV SCH ×2 (06:16→08:39)
[2019-12-23] MEDS ORDERED: LACTATED RINGER'S 1000 ML IV STA (06:16)
[2019-12-23] MEDS ORDERED: ceFAZolin SOD 2 GM in IV 1 EA IV ONE (06:30)
[2019-12-23] MEDS ORDERED: BICITRA 30ML SOLN UDC PO ONE (06:30)
[2019-12-23 06:51] LABS: HEMATOCRIT 33.5 % (36.0-47.0); HEMOGLOBIN 11.4 g/dl (12.0-15.5); MEAN CORPUSCULAR VOLUME 88.2 fl (80.0-96.0); PLATELET COUNT, AUTOMATED 219 10^3/uL (150-450); WHITE BLOOD COUNT 11.4 10^3/uL (4.0-10.0)
[2019-12-23] MEDS ORDERED: MORPHINE PRES-FREE INJ 10 MG/10 ML VIAL (J2274) As Ordered ONE (07:29)
[2019-12-23] MEDS ORDERED: OXYTOCIN 30 UNITS IN 0.9% NaCl 500ML IV BAG (J2590) As Ordered ONE ×2 (07:30→09:21)
[2019-12-23] MEDS ORDERED: ONDANSETRON 4MG/2ML VIAL As Ordered ONE (07:30)
[2019-12-23] MEDS ORDERED: ePHEDrine SULFATE 25 MG/5 ML(5MG/ML) SYRINGE As Ordered ONE ×2 (07:30→08:00)
[2019-12-23] MEDS ORDERED: PHENYLephrine HCL 500 MCG/5 ML (100MCG/ML) SYRINGE (J2370) As Ordered ONE (07:30)
[2019-12-23] MEDS ORDERED: KETOROLAC 60 MG/2 ML VIAL As Ordered ONE (07:30)
[2019-12-23] MEDS ORDERED: diphenhydrAMINE 50MG/ML VIAL (J1200) IV PRN (07:51)
[2019-12-23] MEDS ORDERED: METOCLOPRAMIDE INJ 10MG/2ML VIAL (J2765 PER 1) IV PRN (07:51)
[2019-12-23] MEDS ORDERED: ONDANSETRON 4MG/2ML VIAL IV PRN ×3 (07:51→09:15)
[2019-12-23] MEDS ORDERED: NALBUPHINE HCL 10 MG/ML AMP (J2300) IV PRN (07:51)
[2019-12-23] MEDS ORDERED: NALOXONE INJ 0.4MG/1ML VIAL (J2310 PER 1MG) IV PRN ×2 (07:51)
[2019-12-23] MEDS ORDERED: OXYTOCIN DRIP 30 UNITS in IV 1 EA IV SCH (08:39)
[2019-12-23] MEDS ORDERED: MEASLES,MUMPS,RUBELLA VACCINE INJ (MMR-II) (90707) SC SCH (08:45)
[2019-12-23] MEDS ORDERED: PERCOCET 5MG/325MG TAB PO PRN (08:45)
[2019-12-23] MEDS ORDERED: RHOGAM 300 MCG (1500 IU) INJ (J2790) IM SCH (08:45)
[2019-12-23] MEDS ORDERED: DOCUSATE SODIUM 100 MG CAP PO PRN (08:45)
[2019-12-23] MEDS: PRENATAL VITAMINS CHEWABLE TABLET PO SCH (09:00)
[2019-12-23] MEDS ORDERED: HYDROMORPHONE HCL 0.5 MG/ 0.5 ML SYRINGE (J1170 PER 1) IV PRN (09:15)
[2019-12-23] MEDS ORDERED: oxyCODONE 5MG TAB PO PRN (09:15)
[2019-12-23] MEDS ORDERED: fentaNYL 100 MCG/2 ML INJECTION (J3010) IV PRN (09:15)
[2019-12-23] MEDS ORDERED: diphenhydrAMINE 50MG/ML VIAL (J1200) As Ordered ONE (09:39)
[2019-12-23] MEDS: diphenhydrAMINE 50MG/ML VIAL (J1200) IV PRN ×2 (09:41→18:05)
[2019-12-23] MEDS ORDERED: diphenhydrAMINE 50MG/ML VIAL (J1200) IV ONE (11:45)
[2019-12-23] MEDS: KETOROLAC 30 MG/ML 1ML VIAL IV SCH ×2 (14:51→20:46)
[2019-12-23] MEDS ORDERED: LACTATED RINGER'S 1000 ML IV ONE (21:15)
[2019-12-24] MEDS: KETOROLAC 30 MG/ML 1ML VIAL IV SCH (02:04)
[2019-12-24 02:18] VITALS: BP 106/56
[2019-12-24 06:46] LABS: MEAN CORPUSCULAR HEMOGLOBIN 30.4 pg (27.0-33.0); MEAN CORPUSCULAR HGB CONC 33.3 g/dl (32.0-36.5); MEAN CORPUSCULAR VOLUME 91.2 fl (80.0-96.0); PLATELET COUNT, AUTOMATED 179 10^3/uL (150-450); RED BLOOD COUNT 3.29 10^6/uL (4.00-5.40); WHITE BLOOD COUNT 11.3 10^3/uL (4.0-10.0)
[2019-12-24 06:52] VITALS: BP 110/72
[2019-12-24] MEDS: PRENATAL VITAMINS CHEWABLE TABLET PO SCH (07:54)
[2019-12-24] MEDS ORDERED: INFLUENZA QUADRIVALENT PF VACCINE 0.5ML SYRINGE (90686) IM ONE (09:00)
[2019-12-24] MEDS: IBUPROFEN 800 MG TAB PO SCH ×2 (09:55→17:33)
[2019-12-24 10:00] VITALS: BP 125/85
[2019-12-24] MEDS ORDERED: SLF 3 ML SYR IV PRN (10:30)
[2019-12-24] MEDS: SLF 3 ML SYR IV SCH ×2 (13:59→22:00)
[2019-12-24 14:00] VITALS: BP 120/70
[2019-12-24] MEDS: PERCOCET 5MG/325MG TAB PO PRN (15:50)
[2019-12-24 18:00] VITALS: BP 129/76
[2019-12-24 22:00] VITALS: BP 132/68
[2019-12-25] MEDS: IBUPROFEN 800 MG TAB PO SCH ×2 (01:48→10:11)
[2019-12-25] MEDS: PERCOCET 5MG/325MG TAB PO PRN (05:28)
[2019-12-25] MEDS: SLF 3 ML SYR IV SCH (06:16)
[2019-12-25 06:19] VITALS: BP 124/76
[2019-12-25] MEDS ORDERED: INFLUENZA QUADRIVALENT PF VACCINE 0.5ML SYRINGE (90686) IM ONE (09:00)
--- NOTE | 2019-12-25 09:20 | DSES ---
DATE OF ADMISSION: 12/23/2019 DATE OF DISCHARGE: 12/25/19 DISCHARGE DIAGNOSIS: Repeat section at term, postoperative day 2, stable condition. SURGEON: Dr. Kory English. SKIVER HAND: Stephanie Kirby, certified nurse produce buyer. HISTORY: Terri underwent a repeat section at term. The surgery was uncomplicated. She delivered a live male infant, weighing 6 pounds 11 ounces, scores 8 and 9. There was an estimated blood loss of 500 mL. Her postoperative course has been uncomplicated. She has been out of bed for self care, abdelrahman care, and infant care. Her pain has been well managed with by mouth pain medications. She is voiding without difficulty and passing flatus. She is tolerating a regular diet and by mouth fluids. OBJECTIVE: Temperature 98.8, pulse 69, respirations 18, blood pressure (BP) is 132/68. Preoperative complete blood count (CBC) on 12/23/2019 with a hemoglobin of 11.4, hematocrit 33.5, platelets 219. Postoperative CBC on 12/25/2019: Hemoglobin of 10, hematocrit of 30, platelets of 179. Her breasts were soft, nontender. Her abdomen is fundus firm at one fingerbreadth below umbilicus. The incision with a dressing dry and intact. There is no new drainage. The perineum is intact. Lochia, rubra scant. Bilateral edema +1. PLAN: Discharge the patient home today. She is to followup for a 2-week incision check and an 8-week visit at [facility]. Pain medications have been e-prescribed by Dr. Kory English to her pharmacy. I did review discharge instructions that include breast care, incision care, and abdelrahman care, pelvic rest, activity and lifting restrictions, danger signs to report, and access to care. The patient has had all of her questions answered and desires discharge today. QUEENIE
[2019-12-25] MEDS: PRENATAL VITAMINS CHEWABLE TABLET PO SCH (10:11)
--- NOTE | 2019-12-26 10:11 | RO ---
DATE OF PROCEDURE: 12/23/2019 PREDELIVERY DIAGNOSIS: 39-2/7 weeks gestation, prior (C) section times one. POSTOPERATIVE DIAGNOSIS: 39-2/7 weeks gestation, prior section times one. PROCEDURE: Repeat low transverse section. SURGEON: Kory English MD ORACLE R12 DEVELOPER: Stephanie Kirby CNM ANESTHESIA: Spinal. ESTIMATED BLOOD LOSS: 500 mL. URINE OUTPUT: 100 mL. FINDINGS: 6 pound 11 ounce male infant. score 8 and 9. Nuchal cord times two. Normal uterus, fallopian tubes, and ovaries. DESCRIPTION OF PROCEDURE: The patient was taken to the operating room where spinal anesthesia was induced. She was prepped and draped in sterile fashion in the supine position. A Candelario catheter was placed. A Pfannenstiel skin incision was made with a scalpel and carried through to the underlying fascia. The fascia was nicked and extended. The fascia was dissected off the rectus muscles. The peritoneal cavity was entered. A Mobius retractor was placed. Bladder flap was created. A curvilinear incision was made in the lower uterine segment until bulging membranes were noted. This was extended manually. The was delivered in the vertex position without difficulty. The cord was doubly clamped and cut. The was handed off to the awaiting nurses. The placenta was expressed. The uterus was closed with #0 Vicryl in a running locked fashion. A second imbricating layer of #0 Vicryl was placed. The Mobius retractor was removed. The peritoneum was closed with #2-0 Vicryl in a running fashion. The fascia was closed with #0 Vicryl in a running fashion. Deep layer was irrigated and closed with #3-0 chromic. The skin was closed with #4-0 Monocryl subcuticular sutures. Sponge, instrument, and needle counts were correct. Stephanie Kirby CNM assisted throughout the procedure. She help create each layer of incision and delivered fetus. She was indispensable for the successful completion of procedure.
== END 2019-12-25 13:30 | disposition home or self-care (01) | DRG 540 ==
LOC: M LDI 06:07 → M OBS 10:13
PROVIDERS: ADMIT Specialist; ATTEND Specialist
PROC: 10D00Z1 Extraction of Products of Conception, Low, Open Approach (ICD-10-PCS; principal; 2019-12-23 07:30)
DX: O34.211 Maternal care for low transverse scar from previous cesarean delivery (principal); Z3A.39 39 weeks gestation of pregnancy; O69.81X0 Labor and delivery complicated by cord around neck, without compression, not applicable or unspecified; Z37.0 Single live birth

== ENCOUNTER → 2020-10-22 | Outpatient (REF) | payer OTHER ==
[~2020-10-22] MED LIST changes: -CLIN150C14 PO; +CLIN150C15 PO
[2020-10-22 16:51] LABS: BASO % 0.4 % (0.0-1.0); EOS # 0.2 10^3/uL (0.0-0.5); HEMATOCRIT 40.2 % (36.0-47.0); HEMOGLOBIN 13.5 g/dl (12.0-15.5); LYMPH # 2.5 10^3/uL (1.5-5.0); LYMPH % 33.2 % (24.0-44.0); MEAN CORPUSCULAR HEMOGLOBIN 30.1 pg (27.0-33.0); MEAN CORPUSCULAR HGB CONC 33.6 g/dl (32.0-36.5); MEAN CORPUSCULAR VOLUME 89.7 fl (80.0-96.0); MONO # 0.5 10^3/uL (0.0-0.8); MONO % 7.3 % (2.0-8.0); NEUTROPHILS # 4.2 10^3/uL (1.5-8.5); NEUTROPHILS % 55.8 % (36.0-66.0); PLATELET COUNT, AUTOMATED 270 10^3/uL (150-450); RED BLOOD COUNT 4.48 10^6/uL (4.00-5.40); WHITE BLOOD COUNT 7.4 10^3/uL (4.0-10.0)
[2020-10-22 17:16] LABS: HEMOGLOBIN A1c 5.2 %
[2020-10-22 17:33] LABS: ALBUMIN 3.7 GM/DL (3.2-5.2); ALT/SGPT 19 U/L (12-78); BILIRUBIN,TOTAL 0.7 MG/DL (0.2-1.0); BLOOD UREA NITROGEN 12 MG/DL (7-18); CARBON DIOXIDE LEVEL 27 MEQ/L (21-32); CHLORIDE LEVEL 108 MEQ/L (98-107); CHOLESTEROL LEVEL 239 MG/DL (<200); CHOLESTEROL RISK RATIO 3.273 (<5); CREATININE FOR GFR 0.67 MG/DL (0.55-1.30); GLOMERULAR FILTRATION RATE > 60.0 (>60); GLUCOSE, FASTING 86 MG/DL (70-100); HDL CHOLESTEROL 73 MG/DL (>40); LDL CHOLESTEROL 144 MG/DL (<100); NON-HDL-C 166 MG/DL; POTASSIUM SERUM 4.4 MEQ/L (3.5-5.1); SODIUM LEVEL 140 MEQ/L (136-145); THYROID STIMULATING HORMONE 0.965 uIU/ML (0.358-3.740); TOTAL PROTEIN 7.4 GM/DL (6.4-8.2); TRIGLYCERIDES LEVEL 109 MG/DL (<150)
== END ==
LOC: M LAB REF 16:31
PROVIDERS: ATTEND Physician Assistant
DX: G43.109 Migraine with aura, not intractable, without status migrainosus (principal); R73.03 Prediabetes; E78.5 Hyperlipidemia, unspecified

== ENCOUNTER → 2021-09-09 | Outpatient (CLI) | payer OTHER ==
[~2021-09-09] MED LIST changes: +BIRTH CONTROL PO; -CLIN150C15 PO; +CLIN150C17 PO; +FLUC150T9 PO; +TOPI50TA9 PO
== END ==
LOC: M LABSMTC 09:06
PROVIDERS: ATTEND Anesthesiology
DX: Z01.812 Encounter for preprocedural laboratory examination (principal); Z20.822 Contact with and (suspected) exposure to COVID-19

== ENCOUNTER → 2021-09-13 | Outpatient (CLI) | payer OTHER | LOC: M LABSMTC 12:55 | PROVIDERS: ATTEND Podiatrist Foot & Ankle Surgery | DX: Z01.812 Encounter for preprocedural laboratory examination (principal); Z11.52 Encounter for screening for COVID-19; U07.1 COVID-19 ==

== ENCOUNTER 2021-09-30 13:11 | Emergency (ER) | payer OTHER ==
[~2021-09-30] VITALS: Ht 172.7 cm; Wt 78.4 kg
[2021-09-30 15:21] LABS: BASO % 0.2 % (0.0-1.0); EOS % 0.3 % (0.0-3.0); HEMATOCRIT 42.3 % (36.0-47.0); HEMOGLOBIN 14.4 g/dl (12.0-15.5); LYMPH % 17.3 % (24.0-44.0); MEAN CORPUSCULAR HEMOGLOBIN 29.5 pg (27.0-33.0); MEAN CORPUSCULAR VOLUME 86.7 fl (80.0-96.0); MONO # 0.7 10^3/uL (0.0-0.8); MONO % 6.2 % (2.0-8.0); NEUTROPHILS # 8.8 10^3/uL (1.5-8.5); NEUTROPHILS % 75.7 % (36.0-66.0); PLATELET COUNT, AUTOMATED 302 10^3/uL (150-450); RED BLOOD COUNT 4.88 10^6/uL (4.00-5.40); WHITE BLOOD COUNT 11.5 10^3/uL (4.0-10.0)
[2021-09-30 15:38] LABS: ALBUMIN 4.3 GM/DL (3.2-5.2); ALT/SGPT 25 U/L (12-78); BILIRUBIN,DIRECT 0.2 MG/DL (0.0-0.2); BLOOD UREA NITROGEN 17 MG/DL (7-18); CALCIUM LEVEL 9.9 MG/DL (8.5-10.1); CARBON DIOXIDE LEVEL 27 MEQ/L (21-32); CHLORIDE LEVEL 107 MEQ/L (98-107); CREATININE FOR GFR 0.72 MG/DL (0.55-1.30); GLOMERULAR FILTRATION RATE > 60.0 (>60); GLUCOSE, FASTING 97 MG/DL (70-100); LIPASE 41 U/L (73-393); POTASSIUM SERUM 3.9 MEQ/L (3.5-5.1); SODIUM LEVEL 139 MEQ/L (136-145); TOTAL PROTEIN 8.5 GM/DL (6.4-8.2)
[2021-09-30 16:23] LABS: HCG, SERUM QUANTITATIVE 51287 MIU/ML
[2021-09-30] MEDS ORDERED: FAMOTIDINE IV BAG 20 MG in IV 1 EA IV ONE (16:45)
[2021-09-30] MEDS ORDERED: ONDANSETRON 4MG/2ML VIAL IV ONE (16:45)
[2021-09-30] MEDS ORDERED: NS 1,000 ML IV ONE (16:45)
[2021-09-30] MEDS ORDERED: GI COCKTAIL 50ML BTL(HYOSCYAMINE/MAALOX/LIDOCAINE VISCOUS)(1:3:1) PO ONE (16:45)
[2021-09-30] MEDS ORDERED: FAMO20TA PO (19:22)
[2021-09-30] MEDS ORDERED: ONDA4TAB6 PO (19:22)
[2021-09-30 19:39] VITALS: BP 128/70
== END 2021-09-30 19:41 | disposition home or self-care (01) ==
LOC: M ED 13:11
DX: K21.9 Gastro-esophageal reflux disease without esophagitis (principal); J45.909 Unspecified asthma, uncomplicated; F33.9 Major depressive disorder, recurrent, unspecified; F41.9 Anxiety disorder, unspecified; Z79.899 Other long term (current) drug therapy
CPT/HCPCS: 80048; 80076; 81001; 83690; 84702; 85025; 96365; 96366; 96375; 99284; J2405

== ENCOUNTER → 2021-11-18 | Outpatient (CLI) | payer OTHER ==
[~2021-11-18] MED LIST changes: +FAMO20TA PO
[2021-11-18 15:41] LABS: BASO % 0.2 % (0.0-1.0); EOS # 0.2 10^3/uL (0.0-0.5); EOS % 1.5 % (0.0-3.0); HEMATOCRIT 38.1 % (36.0-47.0); LYMPH # 2.2 10^3/uL (1.5-5.0); LYMPH % 21.3 % (24.0-44.0); MEAN CORPUSCULAR HEMOGLOBIN 30.6 pg (27.0-33.0); MEAN CORPUSCULAR HGB CONC 34.1 g/dl (32.0-36.5); MEAN CORPUSCULAR VOLUME 89.6 fl (80.0-96.0); MONO # 0.7 10^3/uL (0.0-0.8); MONO % 6.6 % (2.0-8.0); NEUTROPHILS # 7.2 10^3/uL (1.5-8.5); NEUTROPHILS % 70.1 % (36.0-66.0); PLATELET COUNT, AUTOMATED 270 10^3/uL (150-450); RED BLOOD COUNT 4.25 10^6/uL (4.00-5.40); WHITE BLOOD COUNT 10.3 10^3/uL (4.0-10.0)
[2021-11-18 17:02] LABS: HEPATITIS C VIRUS ABY INDEX 0.1 INDEX (<0.8); HIV 1&2 SCREEN CENTAUR NEGATIVE (NEGATIVE)
[2021-11-18 18:45] LABS: GC DNA AMPLIFICATION NEGATIVE (NEGATIVE)
== END ==
LOC: M PLALAB 12:40
PROVIDERS: ATTEND Obstetrics & Gynecology
DX: O21.0 Mild hyperemesis gravidarum (principal); Z3A.09 9 weeks gestation of pregnancy

== ENCOUNTER → 2021-12-30 | Outpatient (REF) | payer OTHER | LOC: M SFHCWAGY 17:09 | PROVIDERS: ATTEND Advanced Practice Midwife | DX: O34.211 Maternal care for low transverse scar from previous cesarean delivery (principal) ==

== ENCOUNTER → 2022-01-06 | Outpatient (CLI) | payer OTHER | LOC: M WHC 12:27 | PROVIDERS: ATTEND Obstetrics & Gynecology | DX: Z36.2 Encounter for other antenatal screening follow-up (principal); Z3A.20 20 weeks gestation of pregnancy ==

== ENCOUNTER → 2022-02-13 | Outpatient (CLI) | payer OTHER | LOC: M WHC 13:29 | PROVIDERS: ATTEND Obstetrics & Gynecology | DX: Z36.2 Encounter for other antenatal screening follow-up (principal); O34.211 Maternal care for low transverse scar from previous cesarean delivery; Z3A.25 25 weeks gestation of pregnancy ==

== ENCOUNTER → 2022-03-29 | Outpatient (CLI) | payer OTHER | LOC: M WHC 13:40 | PROVIDERS: ATTEND Specialist | DX: Z34.83 Encounter for supervision of other normal pregnancy, third trimester (principal); Z3A.31 31 weeks gestation of pregnancy ==

== ENCOUNTER → 2022-04-10 | Outpatient (CLI) | payer OTHER ==
[2022-04-10 13:47] LABS: HEMATOCRIT 32.3 % (36.0-47.0); HEMOGLOBIN 10.6 g/dl (12.0-15.5); MEAN CORPUSCULAR HEMOGLOBIN 29.8 pg (27.0-33.0); MEAN CORPUSCULAR HGB CONC 32.8 g/dl (32.0-36.5); MEAN CORPUSCULAR VOLUME 90.7 fl (80.0-96.0); PLATELET COUNT, AUTOMATED 226 10^3/uL (150-450); RED BLOOD COUNT 3.56 10^6/uL (4.00-5.40); WHITE BLOOD COUNT 11.2 10^3/uL (4.0-10.0)
[2022-04-10 17:44] LABS: GC DNA AMPLIFICATION NEGATIVE (NEGATIVE)
== END ==
LOC: M PLALAB 10:54
PROVIDERS: ATTEND Obstetrics & Gynecology
DX: O34.211 Maternal care for low transverse scar from previous cesarean delivery (principal)

== ENCOUNTER → 2022-05-03 | Outpatient (REF) | payer OTHER ==
[~2022-05-03] MED LIST changes: +GNP28TAB2 PO
== END ==
LOC: M SFHCWAGY 17:03
PROVIDERS: ATTEND Specialist
DX: Z36.89 Encounter for other specified antenatal screening (principal)

== ENCOUNTER → 2022-05-10 | Outpatient (CLI) | payer OTHER | LOC: M LABSMTC 09:08 | PROVIDERS: ATTEND Anesthesiology | DX: Z01.812 Encounter for preprocedural laboratory examination (principal); Z11.52 Encounter for screening for COVID-19 ==

== ENCOUNTER → 2022-07-25 | Outpatient (REF) | payer OTHER ==
[~2022-07-25] MED LIST changes: +OXYC1TAB23 PO
[2022-07-25 21:55] LABS: APPEARANCE, URINE MANUAL CLOUDY (CLEAR); COLOR, URINE MANUAL YELLOW (YELLOW)
[2022-07-25 21:56] LABS: BILIRUBIN, URINE MANUAL NEGATIVE (NEGATIVE); BLOOD URINE MANUAL POSITIVE (NEGATIVE); GLUCOSE, URINE (UA) MANUAL NEGATIVE (NEGATIVE); KETONE, URINE MANUAL NEGATIVE (NEGATIVE); LEUKOCYTE ESTERASE, URINE MAN NEGATIVE (NEGATIVE); NITRITE, URINE MANUAL NEGATIVE (NEGATIVE); PH,URINE MAN 5.5 UNITS (5.0 - 7.0); PROTEIN, URINE MANUAL NEGATIVE (NEGATIVE); UROBILINOGEN, URINE MANUAL NORMAL (NORMAL)
[2022-07-25 22:14] LABS: BACTERIA, URINE LARGE AMOUNT; HYALINE CAST, URINE NONE SEEN /lpf (0-1); SQUAMOUS EPITHELIAL CELL URINE LARGE AMOUNT /hpf (SMALL AMT)
[2022-07-25 22:15] LABS: AMORPHOUS SEDIMENT, URINE MOD AMOUNT (NEGATIVE)
== END ==
LOC: M LAB REF 21:28
PROVIDERS: ATTEND Physician Assistant Medical
DX: N39.0 Urinary tract infection, site not specified (principal)

== ENCOUNTER → 2022-12-02 | Outpatient (REF) | payer OTHER ==
[~2022-12-02] MED LIST changes: +TOPI-254 PO; -TOPI50TA9 PO
[2022-12-02 17:30] LABS: APPEARANCE, URINE MANUAL CLOUDY (CLEAR); COLOR, URINE MANUAL YELLOW (YELLOW)
[2022-12-02 17:31] LABS: GLUCOSE, URINE (UA) MANUAL NEGATIVE (NEGATIVE); PROTEIN, URINE MANUAL 1+ mg/dL (NEGATIVE); SPECIFIC GRAVITY,URINE MANUAL 1.025 (1.002-1.035)
[2022-12-02 17:32] LABS: BILIRUBIN, URINE MANUAL NEGATIVE (NEGATIVE); BLOOD URINE MANUAL POSITIVE (NEGATIVE); KETONE, URINE MANUAL NEGATIVE (NEGATIVE); LEUKOCYTE ESTERASE, URINE MAN POSITIVE (NEGATIVE); NITRITE, URINE MANUAL NEGATIVE (NEGATIVE); UROBILINOGEN, URINE MANUAL NORMAL (NORMAL)
[2022-12-02 17:33] LABS: BACTERIA, URINE SMALL AMOUNT; HYALINE CAST, URINE NONE SEEN /lpf (0-1); SQUAMOUS EPITHELIAL CELL URINE NONE SEEN /hpf (SMALL AMT)
[2022-12-02 19:06] LABS: GC DNA AMPLIFICATION NEGATIVE (NEGATIVE)
== END ==
LOC: M LAB REF 16:45
PROVIDERS: ATTEND Physician Assistant
DX: N39.0 Urinary tract infection, site not specified (principal); Z20.2 Contact with and (suspected) exposure to infections with a predominantly sexual mode of transmission

== ENCOUNTER → 2023-01-09 | Outpatient (REF) | payer OTHER ==
[2023-01-09 17:31] LABS: BASO % 0.2 % (0.0-1.0); EOS # 0.2 10^3/uL (0.0-0.5); EOS % 1.8 % (0.0-3.0); HEMATOCRIT 38.5 % (36.0-47.0); HEMOGLOBIN 13.2 g/dl (12.0-15.5); LYMPH # 2.9 10^3/uL (1.5-5.0); LYMPH % 34.8 % (24.0-44.0); MEAN CORPUSCULAR HEMOGLOBIN 29.9 pg (27.0-33.0); MEAN CORPUSCULAR HGB CONC 34.3 g/dl (32.0-36.5); MEAN CORPUSCULAR VOLUME 87.3 fl (80.0-96.0); MONO # 0.5 10^3/uL (0.0-0.8); MONO % 6.3 % (2.0-8.0); NEUTROPHILS # 4.7 10^3/uL (1.5-8.5); NEUTROPHILS % 56.7 % (36.0-66.0); PLATELET COUNT, AUTOMATED 251 10^3/uL (150-450); RED BLOOD COUNT 4.41 10^6/uL (4.00-5.40); WHITE BLOOD COUNT 8.3 10^3/uL (4.0-10.0)
[2023-01-09 18:00] LABS: ALBUMIN 3.8 G/DL (3.2-5.2); ALKALINE PHOSPHATASE 60 U/L (46-116); ALT/SGPT 13 U/L (7.0-40); AST/SGOT < 8 U/L (<34); BILIRUBIN,TOTAL 0.8 MG/DL (0.3-1.2); BLOOD UREA NITROGEN 13 MG/DL (9-23); CARBON DIOXIDE LEVEL 26 MMOL/L (20-31); CHLORIDE LEVEL 106 MMOL/L (98-107); CHOLESTEROL LEVEL 171 MG/DL (<200); CHOLESTEROL RISK RATIO 3.39 (<5); CREATININE FOR GFR 0.95 MG/DL (0.55-1.30); GLOMERULAR FILTRATION RATE > 60.0 (>60); GLUCOSE, FASTING 80 MG/DL (60-100); HDL CHOLESTEROL 50.3 MG/DL (>40); LDL CHOLESTEROL 104.7 MG/DL (<100); NON-HDL-C 120.7 MG/DL; POTASSIUM SERUM 4.3 MMOL/L (3.5-5.1); SODIUM LEVEL 138 MMOL/L (136-145); TOTAL PROTEIN 6.9 G/DL (5.7-8.2); TRIGLYCERIDES LEVEL 80 MG/DL (<150)
[2023-01-09 18:03] LABS: THYROID STIMULATING HORMONE 0.771 uIU/ML (0.55-4.78); TOTAL 25(OH) VITAMIN D 10.7 NG/ML (20.0-100.0)
[2023-01-09 18:14] LABS: HEMOGLOBIN A1c 5.2 % (4.0-6.0)
== END ==
LOC: M LAB REF 16:50
PROVIDERS: ATTEND Nurse Practitioner Family
DX: Z13.228 Encounter for screening for other metabolic disorders (principal)

== ENCOUNTER → 2023-09-11 | Outpatient (REF) | payer OTHER ==
[~2023-09-11] MED LIST changes: +TOPI-21 PO; -TOPI-254 PO
[2023-09-11 16:43] LABS: APPEARANCE, URINE CLOUDY (CLEAR); BACTERIA, URINE AUTO 1+ (NEGATIVE); BILIRUBIN, URINE AUTO 1+ (NEGATIVE); BLOOD, URINE BLOOD 1+ (NEGATIVE); COLOR, URINE AMBER (YELLOW); GLUCOSE, URINE (UA) AUTO NEGATIVE (NEGATIVE); KETONE, URINE AUTO NEGATIVE (NEGATIVE); LEUKOCYTE ESTERASE, URINE AUTO NEGATIVE (NEGATIVE); MUCUS, URINE SMALL (NEGATIVE); NITRITE, URINE AUTO NEGATIVE (NEGATIVE); PROTEIN, URINE AUTO 2+ mg/dL (NEGATIVE); RBC, URINE AUTO 3 /HPF (0-3); SPECIFIC GRAVITY URINE AUTO 1.042 (1.002-1.035); SQUAMOUS EPITHELIAL CELL UR AU 29 /HPF (0-6); WBC, URINE AUTO 12 /HPF (0-3)
== END ==
LOC: M LAB REF 16:15
PROVIDERS: ATTEND Physician Assistant
DX: N39.0 Urinary tract infection, site not specified (principal)

== ENCOUNTER → 2024-02-06 | Outpatient (REF) | payer OTHER ==
[~2024-02-06] MED LIST changes: +ONDA-282 PO; -ONDA4TAB6 PO
[2024-02-06 13:53] LABS: BASO % 0.5 % (0.0-1.0); EOS # 0.2 10^3/uL (0.0-0.5); EOS % 3.8 % (0.0-3.0); HEMATOCRIT 42.7 % (36.0-47.0); LYMPH # 2.2 10^3/uL (1.5-5.0); LYMPH % 35.1 % (24.0-44.0); MEAN CORPUSCULAR HGB CONC 32.8 g/dl (32.0-36.5); MEAN CORPUSCULAR VOLUME 91.6 fl (80.0-96.0); MONO # 0.6 10^3/uL (0.0-0.8); MONO % 9.3 % (2.0-8.0); NEUTROPHILS # 3.3 10^3/uL (1.5-8.5); NEUTROPHILS % 51.1 % (36.0-66.0); PLATELET COUNT, AUTOMATED 245 10^3/uL (150-450); RED BLOOD COUNT 4.66 10^6/uL (4.00-5.40); WHITE BLOOD COUNT 6.4 10^3/uL (4.0-10.0)
[2024-02-06 14:13] LABS: THYROID STIMULATING HORMONE 1.916 uIU/ML (0.55-4.78)
[2024-02-06 14:14] LABS: ALBUMIN 3.8 G/DL (3.2-5.2); ALKALINE PHOSPHATASE 53 U/L (46-116); ALT/SGPT 16 U/L (7.0-40); AST/SGOT < 8 U/L (<34); BILIRUBIN,TOTAL 0.7 MG/DL (0.3-1.2); BLOOD UREA NITROGEN 14 MG/DL (9-23); CALCIUM LEVEL 9.1 MG/DL (8.5-10.1); CARBON DIOXIDE LEVEL 26 MMOL/L (20-31); CHLORIDE LEVEL 109 MMOL/L (98-107); CHOLESTEROL LEVEL 212 MG/DL (<200); CHOLESTEROL RISK RATIO 3.69 (<5); CREATININE FOR GFR 0.76 MG/DL (0.55-1.30); GLOMERULAR FILTRATION RATE > 60.0 (>60); GLUCOSE, FASTING 93 MG/DL (60-100); HDL CHOLESTEROL 57.3 MG/DL (>40); LDL CHOLESTEROL 138.9 MG/DL (<100); NON-HDL-C 154.7 MG/DL; POTASSIUM SERUM 4.7 MMOL/L (3.5-5.1); SODIUM LEVEL 139 MMOL/L (136-145); TOTAL 25(OH) VITAMIN D 22.9 NG/ML (20.0-100.0); TOTAL PROTEIN 7.2 G/DL (5.7-8.2); TRIGLYCERIDES LEVEL 79 MG/DL (<150)
[2024-02-06 14:41] LABS: HEMOGLOBIN A1c 5.3 % (4.0-6.0)
== END ==
LOC: M LAB REF 12:10
PROVIDERS: ATTEND Nurse Practitioner Family
DX: E66.3 Overweight (principal); E55.9 Vitamin D deficiency, unspecified

== ENCOUNTER → 2024-05-14 | Outpatient (REF) | payer OTHER ==
[2024-05-14 13:42] LABS: APPEARANCE, URINE CLOUDY (CLEAR); BACTERIA, URINE AUTO NEGATIVE (NEGATIVE); BILIRUBIN, URINE AUTO NEGATIVE (NEGATIVE); BLOOD, URINE BLOOD 2+ (NEGATIVE); COLOR, URINE RED (YELLOW); GLUCOSE, URINE (UA) AUTO NEGATIVE (NEGATIVE); KETONE, URINE AUTO NEGATIVE (NEGATIVE); LEUKOCYTE ESTERASE, URINE AUTO 2+ (NEGATIVE); NITRITE, URINE AUTO NEGATIVE (NEGATIVE); PROTEIN, URINE AUTO 2+ mg/dL (NEGATIVE); RBC, URINE AUTO TNTC /HPF (0-3); SPECIFIC GRAVITY URINE AUTO 1.016 (1.002-1.035); SQUAMOUS EPITHELIAL CELL UR AU 5 /HPF (0-6); UROBILINOGEN, URINE AUTO 0.2 mg/dL (0.0-2.0); WBC, URINE AUTO TNTC /HPF (0-3)
== END ==
LOC: M LAB REF 11:54
PROVIDERS: ATTEND Physician Assistant
DX: N39.0 Urinary tract infection, site not specified (principal)

== ENCOUNTER → 2024-10-02 | Outpatient (REF) | payer OTHER | LOC: M LAB REF 17:07 | PROVIDERS: ATTEND Nurse Practitioner Family | DX: B34.9 Viral infection, unspecified (principal) ==

== ENCOUNTER → 2025-02-20 | Outpatient (REF) | payer OTHER ==
[2025-02-20 17:44] LABS: ALT/SGPT 16 U/L (7.0-40); AST/SGOT 15 U/L (<34); CALCIUM LEVEL 8.7 MG/DL (8.5-10.1); CARBON DIOXIDE LEVEL 24 MMOL/L (20-31); CHLORIDE LEVEL 104 MMOL/L (98-107); CHOLESTEROL LEVEL 212 MG/DL (<200); CHOLESTEROL RISK RATIO 3.88 (<5); CREATININE FOR GFR 0.83 MG/DL (0.55-1.30); GLOMERULAR FILTRATION RATE > 90.0 (>60); LDL CHOLESTEROL 139.4 MG/DL (<100); MAGNESIUM LEVEL 2.0 MG/DL (1.8-2.4); NON-HDL-C 157.4 MG/DL; POTASSIUM SERUM 4.3 MMOL/L (3.5-5.1); SODIUM LEVEL 141 MMOL/L (136-145); TRIGLYCERIDES LEVEL 90 MG/DL (<150)
[2025-02-20 17:45] LABS: TOTAL 25(OH) VITAMIN D 28.9 NG/ML (20.0-100.0)
[2025-02-20 18:03] LABS: BASO # 0.0 10^3/uL (0.0-0.2); BASO % 0.4 % (0.0-1.0); EOS # 0.2 10^3/uL (0.0-0.5); EOS % 3.2 % (0.0-3.0); LYMPH # 2.3 10^3/uL (1.5-5.0); LYMPH % 32.6 % (24.0-44.0); MONO # 0.5 10^3/uL (0.0-0.8); MONO % 6.5 % (2.0-8.0); NEUTROPHILS # 4.0 10^3/uL (1.5-8.5); NEUTROPHILS % 57.0 % (36.0-66.0); PLATELET COUNT, AUTOMATED 251 10^3/uL (150-450)
[2025-02-20 18:13] LABS: ESTIMATED AVERAGE GLUCOSE 108.0 MG/DL (60-110)
== END ==
LOC: M LAB REF 17:02
PROVIDERS: ATTEND Nurse Practitioner Family
DX: E66.3 Overweight (principal); E55.9 Vitamin D deficiency, unspecified

== ENCOUNTER → 2025-05-12 | Outpatient (REF) | payer OTHER ==
[~2025-05-12] MED LIST changes: -IBUP-1022 PO; +IBUP600T42 PO
== END ==
LOC: M LAB REF 14:53
PROVIDERS: ATTEND Student in an Organized Health Care Education/Training Program
DX: Z01.84 Encounter for antibody response examination (principal)